=== PATIENT | female | born 1990 | race Two or more races ===

== ENCOUNTER 2021-05-09 12:40 | Emergency (ER) | payer OTHER ==
[2021-05-09 12:46] VITALS: TEMP 98.3
[2021-05-09] MEDS ORDERED: methylPREDNISolone SOD SUCCI 125 MG/2 ML VIAL IV STA (12:57)
[2021-05-09] MEDS ORDERED: FAMOTIDINE 20 MG/2 ML VIAL IV STA (12:57)
[2021-05-09] MEDS ORDERED: diphenhydrAMINE 50 MG/ML 1 ML VIAL IVP STA ×2 (12:57→13:45)
--- NOTE | 2021-05-09 13:18 | ED ---
General Adult HPI - General Chief complaint: Allergic Reaction Stated complaint: Allergic Reaction Time Seen by Provider: 05/09/21 12:45 Source: patient, RN notes reviewed, old records reviewed Mode of arrival: ambulatory Limitations: no limitations - History of Present Illness Initial comments: This is a 30-year-old female who presents emergency department stating that she is itching all over she has hives on her legs back, arms. Patient denies any difficulty breathing or swallowing. Patient states both ears are itching as well. Patient states she did take a Prilosec for the first time this morning and she also took an antinausea medication hour prior to itching but she has no with that is. Patient denies any similar symptoms. - Related Data Home Medications Medication Instructions Recorded Confirmed Omeprazole 40 mg PO DAILY 05/09/21 05/09/21 Previous Rx's Medication Instructions Recorded predniSONE [Deltasone] 40 mg PO DAILY #8 tab 05/09/21 Allergies Allergy/AdvReac Type Severity Reaction Status Date / Time Penicillins Allergy Rash/Hives Verified 05/09/21 13:29 Sulfa (Sulfonamide Allergy Rash/Hives Verified 05/09/21 13:29 Antibiotics) Review of Systems ROS Statement: Those systems with pertinent positive or pertinent negative responses have been documented in the HPI. ROS Other: All systems not noted in ROS Statement are negative. Past Medical History Past Medical History: No Reported History Additional Past Medical History / Comment(s): Heart murmur-since History of Any Multi-Drug Resistant Organisms: None Reported Past Surgical History: Cholecystectomy Past Psychological History: Anxiety Smoking Status: Current every day smoker Past Alcohol Use History: None Reported Past Drug Use History: Marijuana - Past Family History Father Family Medical History: No Reported History Additional Family Medical History / Comment(s): Father is 47 years of age with no major medical problems. Mother Additional Family Medical History / Comment(s): Mother is age 45 and suffers from depression and anxiety. Brother(s) Family Medical History: No Reported History Additional Family Medical History / Comment(s): Patient has 2 half-brothers and one half-sister that are all healthy with no major medical problems. General Exam - General Exam Comments Initial Comments: GENERAL: Patient is well-developed and well-nourished. Patient is nontoxic and well- hydrated and is in mild distress. ENT: Neck is soft and supple. No significant lymphadenopathy is noted. Oropharynx is clear. Moist mucous membranes. Neck has full range of motion without eliciting any pain. EYES: The sclera were anicteric and conjunctiva were pink and moist. Extraocular movements were intact and pupils were equal round and reactive to light. Eyelids were unremarkable. PULMONARY: Unlabored respirations. Good breath sounds bilaterally. No audible rales rhonchi or wheezing was noted. CARDIOVASCULAR: There is a regular rate and rhythm without any murmurs gallops or rubs. ABDOMEN: Soft and nontender with normal bowel sounds. SKIN: Patient's extremities back years and chest and abdomen are erythematous and there are small hives on extremities and lower back. NEUROLOGIC: Patient is alert and oriented x3. Cranial nerves II through XII are grossly intact. Motor and sensory are also intact. Normal speech, volume and content. Symmetrical smile. PSYCHIATRIC: Normal psychiatric evaluation. Limitations: no limitations Course Vital Signs 05/09/21 05/09/21 05/09/21 12:43 13:08 13:51 Temperature 98.3 F Pulse Rate 116 H 121 H 96 Respiratory 18 20 18 Rate Blood Pressure 134/82 127/78 128/78 O2 Sat by Pulse 97 97 99 Oximetry 05/09/21 05/09/21 13:53 14:06 Temperature 98.3 F Pulse Rate 96 Respiratory 20 20 Rate Blood Pressure 128/78 O2 Sat by Pulse 99 Oximetry Medical Decision Making - Medical Decision Making patient received Benadryl steroids and Pepcid in the emergency department was feeling considerably better. Disposition Clinical Impression: Allergic reaction Disposition: HOME SELF-CARE Instructions (If sedation given, give patient instructions): General Allergic Reaction (ED) Prescriptions: predniSONE [Deltasone] 40 mg PO DAILY #8 tab Is patient prescribed a controlled substance at d/c from ED?: No Referrals: Nonstaff,Physician [Primary Care Provider] - 1-2 days Time of Disposition: 13:49
[2021-05-09 13:53] VITALS: BP 128/78; PULSE 96
[2021-05-09 13:54] VITALS: RESP 20
== END 2021-05-09 14:07 | disposition home or self-care (01) ==
LOC: EC 12:40
DX: T78.40XA Allergy, unspecified, initial encounter (principal); F17.200 Nicotine dependence, unspecified, uncomplicated; F41.9 Anxiety disorder, unspecified; F12.90 Cannabis use, unspecified, uncomplicated; Z88.0 Allergy status to penicillin; Z88.2 Allergy status to sulfonamides; Z90.49 Acquired absence of other specified parts of digestive tract
CPT/HCPCS: 99283; 96374; 96375 ×2; 96376; J1200; J2930

== ENCOUNTER → 2024-09-16 | Outpatient (CLI) | payer MEDICARE, OTHER | LOC: WWCWWP 14:10 → MERGE 14:40 | PROVIDERS: ATTEND Obstetrics & Gynecology | DX: Z01.419 Encounter for gynecological examination (general) (routine) without abnormal findings (principal); F17.210 Nicotine dependence, cigarettes, uncomplicated; Z88.5 Allergy status to narcotic agent; Z88.0 Allergy status to penicillin; Z88.2 Allergy status to sulfonamides; Z91.040 Latex allergy status ==